=== PATIENT | female | born 1985 | race African-American/Black ===

== ENCOUNTER 2024-10-07 10:58 | Emergency (ER) | payer OTHER ==
[2024-10-07 11:18] VITALS: BMI 27.5
[2024-10-07] MEDS ORDERED: ACETAMINOPHEN 500 MG TABLET (FP) ONE (12:25)
[2024-10-07] MEDS: ACETAMINOPHEN 500 MG TABLET (FP) PO ONE (12:40)
[2024-10-07 13:16] LABS: BASO % 0.7 % (0-2.0); HEMATOCRIT 39.2 % (32.4-45.2); HEMOGLOBIN 12.7 GM/dL (10.7-15.3); LYMPH % 19.7 % (8-40); MCH 32.5 pg (25.7-33.7); MCHC 32.4 g/dl (32.0-36.0); MEAN CELL VOLUME 100.3 fl (80-96); MEAN PLT VOLUME 9.2 fl (7.5-11.1); MONO % 12.8 % (3.8-10.2); NEUT % 63.8 % (42.8-82.8); PLATELET COUNT 179 10^3/uL (134-434); RDW 16.5 % (11.6-15.6); WHITE BLOOD COUNT 4.8 K/mm3 (4.0-10.0)
[2024-10-07 13:47] LABS: CHLORIDE 101 mmol/L (98-107); SODIUM 131 mmol/L (136-145)
[2024-10-07 13:49] LABS: ALBUMIN 3.2 g/dl (3.4-5.0); BLOOD UREA NITROGEN 44.5 mg/dL (7-18); CALCIUM 9.5 mg/dL (8.5-10.1); CO2 26 mmol/L (21-32); GLUCOSE,RANDOM 68 mg/dL (74-106); MAGNESIUM 2.7 mg/dL (1.8-2.4)
[2024-10-07 13:52] LABS: ANION GAP 5 mmol/L (4-13); PHOSPHOROUS 6.2 mg/dL (2.5-4.9); POTASSIUM 9.5 mmol/L (3.5-5.1)
[2024-10-07 13:54] LABS: BILIRUBIN,TOTAL 0.2 mg/dL (0.2-1); CREATININE 8.4 mg/dL (0.55-1.3); SGOT/AST 88 U/L (15-37); SGPT/ALT 23 U/L (13-61); TOT PROT 7.9 g/dl (6.4-8.2)
[2024-10-07 13:56] LABS: ALK PHOS 76 U/L (45-117)
[2024-10-07 14:50] LABS: CHLORIDE 103 mmol/L (98-107); SODIUM 135 mmol/L (136-145)
[2024-10-07 14:51] LABS: ANION GAP 5 mmol/L (4-13); BLOOD UREA NITROGEN 45.8 mg/dL (7-18); CALCIUM 9.7 mg/dL (8.5-10.1); CO2 27 mmol/L (21-32); POTASSIUM 6.7 mmol/L (3.5-5.1)
[2024-10-07 14:52] LABS: GLUCOSE,RANDOM 71 mg/dL (74-106)
[2024-10-07 14:56] LABS: CREATININE 8.5 mg/dL (0.55-1.3)
[2024-10-07 16:29] LABS: CHLORIDE 103 mmol/L (98-107); POTASSIUM 5.2 mmol/L (3.5-5.1); SODIUM 137 mmol/L (136-145)
[2024-10-07 16:31] LABS: CALCIUM 9.6 mg/dL (8.5-10.1)
[2024-10-07 16:32] LABS: ANION GAP 7 mmol/L (4-13); BLOOD UREA NITROGEN 46.3 mg/dL (7-18); CO2 27 mmol/L (21-32); GLUCOSE,RANDOM 80 mg/dL (74-106)
[2024-10-07 16:42] LABS: CREATININE 8.6 mg/dL (0.55-1.3)
[2024-10-07 16:48] VITALS: BP 114/75; PULSE 87; RESP 17; TEMP 98.3
== END 2024-10-07 17:06 | disposition home or self-care (01) ==
LOC: JER 10:58
DX: J02.9 Acute pharyngitis, unspecified (principal); N18.6 End stage renal disease; R06.02 Shortness of breath; Z20.822 Contact with and (suspected) exposure to COVID-19
CPT/HCPCS: 0241U-QW; 36415; 71046-TC-FY; 80048; 80053; 83735; 84100; 84703; 85025; 93005; 93010; 99285-25